=== PATIENT | male | born 2000 | race Caucasian/White ===

== ENCOUNTER 2023-12-09 11:22 | Emergency (ER) | payer OTHER, BC, SELFPAY ==
[2023-12-09 11:27] VITALS: BP 131/83; PULSE 80; RESP 18; TEMP 36.4; O2SAT 98
--- NOTE | 2023-12-09 13:09 | ED.UPPEXIN ---
HPI - Extremity Injury (Upper) General Chief Complaint: Extremity Injury, Upper Stated Complaint: R hand laceration Time Seen by Provider: 12/09/23 12:05 History of Present Illness HPI narrative: Patient's hand scraped across a metal bar and cut it, there was some bleeding so he put some liquid adhesive on and came in. Able to move his hand normally without any weakness Related Data Allergies Allergy/AdvReac Type Severity Reaction Status Date / Time sertraline [From Zoloft] Allergy Itching Verified 12/09/23 11:33 Review of Systems Review of Systems: CONST: No fever. HEENT: No sore throat C/V: No chest pain RESP: No cough GI: No abdominal pain : No dysuria. M/S: No joint pain. SKIN: Cut to hand NEURO: [No headache or focal numbness or weakness] PSYCH: [No depression] Exam Narrative: EXAMINATION OF ORGAN SYSTEMS/BODY AREAS: Constitutional: Vital signs per nursing GENERAL:[No acute distress, non-toxic appearing.] HEAD: Normal with no signs of head trauma. EYES: EOMI, conjunctiva normal ENT: Hearing grossly intact LUNGS: Nonlabored breathing. HEART: [Regular rate and rhythm] ABD: [Soft], nondistended EXT: Normal range of motion; normal strength with flexion/extension of fingers SKIN: Linear lac to R hand NEURO: [Alert and oriented x 3. No gross focal sensory or strength deficits.] PSYCH: Normal affect Course Vital Signs Vital signs: Vital Signs Temperature 97.5 F L 12/09/23 11:27 Pulse Rate 80 12/09/23 11:27 Respiratory Rate 18 12/09/23 11:27 Blood Pressure 131/83 12/09/23 11:27 Pulse Oximetry 98 12/09/23 11:27 Temperature 97.5 F L 12/09/23 11:27 Pulse Rate 80 12/09/23 11:27 Respiratory Rate 18 12/09/23 11:27 Blood Pressure 131/83 12/09/23 11:27 Pulse Oximetry 98 12/09/23 11:27 Procedures Laceration Laceration 1: Date: 12/09/23 Time: 12:31 Site: hand Side (If applicable): right Size (cm): 2 Description: linear Depth: simple, single layer Local Anesthetic: lidocaine 1% Amount of anesthesia used (mL): 2 Pre-repair: irrigated, irrigated extensively and deep structures intact ====== Skin Level ====== Skin layer closed with: vicryl Size (cm): 4-0 Number of sutures: 3 Technique: simple, interrupted ====== Subcutaneous Layer ====== ====== Muscle Layer ====== ====== Tendon Layer ====== MDM - Extremity Injury (Upper) MDM Narrative Medical decision making narrative: Patient presenting with right hand laceration his tetanus is up-to-date, wound is irrigated under the sink for several minutes, and then irrigated with normal saline. Closed here and stable for dc at this time with return/wound care instructions. Discharge Plan Discharge Clinical Impression: Hand laceration Patient Disposition: Home, Self-Care Condition: Stable Instructions: Antibiotic Form, Care For Your Stitches (ED) Additional Instructions: Please follow up with your doctor as needed; keep the wound clean and come back if you have any further issues. Follow-up/Referrals: Aramis Meredith MD [Physician] - 1 Week UNKNOWN,DOCTOR [Primary Care Provider] - Stand Alone Forms: Work/School Release IP
== END 2023-12-09 13:03 | disposition home or self-care (01) ==
PROVIDERS: Emergency Provider Emergency Medicine
DX: S61.411A Laceration without foreign body of right hand, initial encounter (principal); W22.8XXA Striking against or struck by other objects, initial encounter
CPT/HCPCS: 12001; 99282